=== PATIENT | male | born 1975 | race Caucasian/White ===

== ENCOUNTER 2019-05-10 10:51 | Day surgery (SDC) | payer OTHER ==
[~2019-05-10] VITALS: Ht 172.7 cm; Wt 129.8 kg
[~2019-05-10 10:51] MED LIST: ALBU90OI61 INH; Daily Multiple1 EACH PO; GINKGO BILOBA PO; LEVO-T112 MCG PO; OMEPRAZOLE MAGN20 MG PO
== END 2019-05-10 13:03 | disposition home or self-care (01) ==
LOC: ORSCSDS 10:51
DX: Z12.11 Encounter for screening for malignant neoplasm of colon (principal); Z80.0 Family history of malignant neoplasm of digestive organs; K21.0 Gastro-esophageal reflux disease with esophagitis; D12.0 Benign neoplasm of cecum; K29.70 Gastritis, unspecified, without bleeding; K64.8 Other hemorrhoids; I10 Essential (primary) hypertension; G47.33 Obstructive sleep apnea (adult) (pediatric); E03.9 Hypothyroidism, unspecified; E66.01 Morbid (severe) obesity due to excess calories; Z68.41 Body mass index [BMI] 40.0-44.9, adult; Z79.899 Other long term (current) drug therapy
CPT/HCPCS: 88305; 88342; J2250; J2704; J7120